=== PATIENT | female | born 1990 ===

== ENCOUNTER 2024-03-06 13:31 | Inpatient (IN) | payer OTHER ==
[~2024-03-06] VITALS: Ht 162.6 cm; Wt 69.4 kg
[2024-03-20 20:55] VITALS: BP 127/82
[2024-03-20 20:59] LABS: HEMATOCRIT 33.9 % (36.0-45.00); HEMOGLOBIN 11.4 g/dL (12.0-15.00); MEAN CELL VOLUME 91.5 fL (80.00-100.00); MEAN CORPUSCULAR HEMOGLOBIN 30.9 pg (27.00-32.0); MEAN CORPUSCULAR HGB CONC 33.8 g/dl (32.0-36.0); PLATELET COUNT 292 K/uL (150-450); RED CELL DISTRIBUTION WIDTH 14.8 % (11.5-14.5)
[2024-03-20] MEDS ORDERED: PRENATAL 19 TA1 EAC2 PO (21:08)
[2024-03-20 21:26] LABS: INR < 0.93; PARTIAL THROMBOPLASTIN TIME 26.8 SECONDS (22.0-34.0); PROTHROMBIN TIME 10.2 SECONDS (9.0-11.5)
[2024-03-20] MEDS ORDERED: RINGERS SOLUTION,LACTATED 1,000 ML IV SCH (21:30)
[2024-03-20 21:31] LABS: ALBUMIN 2.6 gm/dL (3.4-5.0); BILIRUBIN TOTAL 0.14 mg/dL (0.3-1.2); CALCIUM 8.7 mg/dL (8.5-10.1); CREATININE SERUM 0.64 mg/dL (0.55-1.02); GFR 105.6; GLOBULINA 3.7 G/DL (2.4-3.5); POTASSIUM 4.08 mEq/L (3.5-5.1); TOTAL PROTEIN 6.3 gm/dL (6.4-8.2)
[2024-03-20] MEDS ORDERED: MORPHINE SULFATE 4 MG/ML VIAL IV ONE (22:45)
[2024-03-21] VITALS: BP 108/71
[2024-03-21] MEDS ORDERED: MORPHINE SULFATE 4 MG/ML CARTRIDGE IV PRN (02:00)
[2024-03-21] MEDS ORDERED: CHLORHEXIDINE GLUCONATE 120 ML BOTTLE TP SCH (03:30)
[2024-03-21] MEDS ORDERED: OXYTOCIN 1,000 ML IV SCH (03:30)
[2024-03-21] MEDS ORDERED: IBUprofen 400 MG TABLET PO PRN (03:30)
[2024-03-21 07:30] VITALS: BP 106/61
[2024-03-21 09:06] VITALS: BP 118/62
[2024-03-21 13:59] LABS: HEMATOCRIT 31.3 % (36.0-45.00); HEMOGLOBIN 10.6 g/dL (12.0-15.00); MEAN CELL VOLUME 91.4 fL (80.00-100.00); MEAN CORPUSCULAR HEMOGLOBIN 30.9 pg (27.00-32.0); MEAN CORPUSCULAR HGB CONC 33.8 g/dl (32.0-36.0); PLATELET COUNT 236 K/uL (150-450); RED BLOOD COUNT 3.42 M/uL (4.00-6.00); RED CELL DISTRIBUTION WIDTH 14.8 % (11.5-14.5)
[2024-03-21 18:48] VITALS: BP 106/70
[2024-03-22] VITALS: BP 106/71
[2024-03-22 08:50] VITALS: BP 122/86
[2024-03-22 18:29] VITALS: BP 113/76
[2024-03-22] MEDS ORDERED: DOCUSATE SODIUM 100MG CAP PO SCH (21:45)
[2024-03-23 02:11] VITALS: BP 99/62
[2024-03-23 08:00] VITALS: BP 115/79
[2024-03-23 15:00] LABS: HEMATOCRIT 32.9 % (36.0-45.00); HEMOGLOBIN 11.1 g/dL (12.0-15.00); MEAN CELL VOLUME 91.8 fL (80.00-100.00); MEAN CORPUSCULAR HGB CONC 33.8 g/dl (32.0-36.0); PLATELET COUNT 262 K/uL (150-450); RED BLOOD COUNT 3.58 M/uL (4.00-6.00); RED CELL DISTRIBUTION WIDTH 14.7 % (11.5-14.5)
[2024-03-23 16:00] VITALS: BP 117/74
[2024-03-23 20:00] VITALS: BP 115/74
[2024-03-24 02:31] VITALS: BP 120/76
[2024-03-24 08:00] VITALS: BP 107/64
== END 2024-03-24 18:03 | disposition home or self-care (01) | DRG 807 ==
LOC: OB/GYN 03-16 13:29 → LDR 03-20 20:26 → OB/GYN 03-21 08:21
PROVIDERS: Obstetrics & Gynecology; ADMIT Obstetrics & Gynecology; ATTEND Obstetrics & Gynecology
PROC: 4A1HXCZ Monitoring of Products of Conception, Cardiac Rate, External Approach (ICD-10-PCS; 2024-03-20)
PROC: 10E0XZZ Delivery of Products of Conception, External Approach (ICD-10-PCS; principal; 2024-03-21)
PROC: 0HQ9XZZ Repair Perineum Skin, External Approach (ICD-10-PCS; 2024-03-21)
DX: O70.0 First degree perineal laceration during delivery (principal); Z37.0 Single live birth; Z3A.40 40 weeks gestation of pregnancy; Z20.822 Contact with and (suspected) exposure to COVID-19